=== PATIENT | female | born 1955 | race Caucasian/White ===

== ENCOUNTER 2021-04-29 16:26 | Inpatient (IN) | payer MEDICARE, SELFPAY ==
--- NOTE | ~2021-04-29 | CT_ITS ---
EXAMINATION: CT HEAD WITHOUT CONTRAST CLINICAL INFORMATION: Altered mental status. Syncope. Rule out intracranial bleed, stroke. COMPARISON: None TECHNIQUE: Contiguous axial imaging was performed from the skull base to vertex without intravenous administration of contrast. This CT examination was performed using dose optimization techniques as appropriate, variously including the following: *Automated exposure control *Adjustment of mA and/or kV according to patient size (this includes techniques or standardized protocols for targeted exams where dose is matched to indication/reason for exam; i.e. extremities or head) *Use of iterative reconstruction technique DLP: 683 mGy-cm FINDINGS: There is no evidence of acute intracranial hemorrhage or territorial infarction. No abnormal mass effect or midline shift is seen. Martin to white matter differentiation is well preserved. No extra-axial fluid collections are identified. The ventricles and sulci are age-appropriate. No significant abnormal parenchymal attenuation is appreciated on the head CT. The osseous structures and soft tissues are normal. The mastoid air cells and visualized portions of the paranasal sinuses are well aerated. CT/CT head/brain wo con IMPRESSION: No acute intracranial pathology. Specifically, there is no evidence of acute intracranial hemorrhage or acute territorial infarction. This critical result was discussed with Dr. Mccloud at 8:43 AM on 04/30/2021 and it was ascertained that the content and urgency of the report was understood at the time of direct communication.
--- NOTE | ~2021-04-29 | XR_ITS ---
EXAMINATION: XR CHEST CLINICAL INFORMATION: Chest COMPARISON: None TECHNIQUE: Frontal view of the chest was obtained. FINDINGS: Lungs are clear. There is no evidence of pleural effusion or consolidation. Cardiomediastinal silhouette. Status post median sternotomy XR/XR chest 1V IMPRESSION: No active cardiopulmonary disease.
--- NOTE | 2021-04-29 16:34 | ECG_ITS ---
Test Reason : CP Blood Pressure : / mmHG Vent. Rate : 052 BPM Atrial Rate : 052 BPM P-R Int : 158 ms QRS Dur : 070 ms QT Int : 514 ms P-R-T Axes : 055 043 058 degrees QTc Int : 478 ms Sinus bradycardia cannot exclude old anterior infarct Abnormal ECG No previous ECGs available Referred By: Generic ED Physician Electronically Signed By:LONG STEVEN
[2021-04-29 16:39] VITALS: BP 155/75; PULSE 54; RESP 22; TEMP 36.1; O2SAT 99; BMI 47.2
[2021-04-30] VITALS (13 sets, daily range): BP systolic 129–222; BP diastolic 59–101; PULSE 50–91; RESP 15–20; TEMP 36.3–36.9; O2SAT 96–100
[2021-04-30 01:14] LABS: MANUAL DIFF FLAG NO
[2021-04-30 01:22] LABS: Basophils Percent Auto 0.7 % (0-2); Eosinophils Absolute Auto 0.1 X10*3/uL (0.0-0.4); Eosinophils Percent Auto 2.5 % (0-4); Hematocrit 43.2 % (37.0-47.0); Hemoglobin 13.6 g/dl (12.0-16.0); Imm Gran Abs Auto 0.01 X10*3/uL (0.00-0.03); Imm Gran Pct Auto 0.2 % (0.0-0.4); Lymphocytes Absolute Auto 1.1 X10*3/uL (1.2-4.9); Lymphocytes Percent Auto 25.5 % (20-40); Mean Corpuscular HGB Conc 31.5 g/dl (31.0-35.0); Mean Corpuscular Hemoglobin 29.2 pg (27.0-33.0); Mean Corpuscular Volume 92.7 fL (80.0-98.0); Mean Platelet Volume 9.7 fL (9.4-12.3); Monocytes Absolute Auto 0.5 X10*3/uL (0.1-1.2); Monocytes Percent Auto 10.4 % (2-11); Neutrophils Absolute Auto 2.7 x10*3/uL (2.0-8.3); Neutrophils Percent Auto 60.7 % (45-73); Platelet Count 320 X10*3/uL (160-400); Red Blood Count 4.66 X10*6/uL (4.20-5.50); Red Cell Distribution Width 14.5 % (11.0-16.0); White Blood Count 4.4 X10*3/uL (4.8-10.8)
[2021-04-30 01:32] LABS: Anion Gap 11 (12-20); Blood Urea Nitrogen 12 mg/dL (9-16); Calcium 9.8 mg/dL (8.4-10.2); Carbon Dioxide 30 mmol/L (22-29); Chloride 107 mmol/L (96-108); Creatinine Clr Calc Pharmacy 71.7; Estimated Glomerular Filt Rate > 60; Glucose Random 133 mg/dL (60-115); Potassium 3.6 mmol/L (3.3-5.1); Sodium 144 mmol/L (135-145)
[2021-04-30 01:38] LABS: Troponin-I High Sensitivity 10.8 ng/L (<3.5-17.0)
[2021-04-30 01:46] LABS: COVID-19 Test Negative (Negative); IDNOW Serial# 55D5AD1C
--- NOTE | 2021-04-30 03:51 | PC.NURSE ---
Dr Rincon aware of BP
--- NOTE | 2021-04-30 05:22 | PC.NURSE ---
This RN and Dr Rincon at bedside for provider initial eval.
--- NOTE | 2021-04-30 05:37 | PC.NURSE ---
Pt aaox1, disoriented to place, situation and time. Dr Rincon aware, plan to speak with daughter and likely DC.
--- NOTE | 2021-04-30 06:10 | ED_ITS ---
HPI - Syncope General Chief Complaint: Syncope Stated Complaint: Chest wall pain/syncope Time Seen by Provider: 04/30/21 04:56 Source: family (Patient's daughter) Mode of arrival: EMS Limitations: language barrier (Vietnamese speaking only, memory deficits) History of Present Illness HPI narrative: 65-year-old female who was brought to emergency department by ambulance for evaluation of a syncopal episode. The patient has memory deficits according to her daughter. Information was obtained from the patient's daugh Jennifer weeks. According to her daughter, the patient had a heart attack 01/2021 and was treated at [facility]. The patient had a 3 vessel CABG. After the bypass, the patient had difficulty with elevated blood pressures. The daughter states that they had trouble getting blood pressure medications therefore they changed providers and or being seen at [facility]. The patient was started on metoprolol 25 mg twice a day. The daughter states the patient still had elevated blood pressures and they had a follow-up appointment yesterday with her provider at [facility]. The patient had a low heart rate but an elevated blood pressure. The plan was to start l osartan. The patient walked out of the doctor's office and suddenly felt unwell. According to the daughter, the patient stated she was not feeling well, she then stated that she was unable to see and then passed out. The daughter states that she passed out for 3-4 seconds woke up and then passed out 2 more times. An ambulance was called and the patient was brought to the emergency department for evaluation. The daughter states that this is the patient's 1st syncopal episode. The patient takes the following medications: Metoprolol 25 mg twice a day Aspirin 81 mg once a day Sertraline 100 mg daily Oxybutynin 10 mg once a day Gabapentin 100 mg 3 times a day Plavix 75 mg once a day Pantoprazole 40 mg once a day Atorvastatin 80 mg at bedtime Related Data Allergies Allergy/AdvReac Type Severity Reaction Status Date / Time No Known Allergies Allergy Verified 04/30/21 06:20 Review of Systems Review of Systems: Yes Unobtainable due to mental status PMFSH Social History Social History Advance Directives: No Physical Exam Vital Signs: Vital Signs: Last Vital Signs Temp 97.0 F 04/29/21 16:39 Pulse 54 04/30/21 05:29 Resp 16 04/30/21 05:29 BP 222/92 H 04/30/21 05:29 Pulse Ox 100 04/30/21 05:29 BMI result Body Mass Index 47.2 Const: Other: Very pleasant and cooperative female patient, awake and alert, oriented to person and place, does not have any insight as to why she is here in the emergency department cannot recount details of her syncopal episodes. HENMT: Head: Yes normal to inspection, Yes normocephalic and Yes atraumatic Ears: external ears normal General nose exam: Normal external nose present Face and sinus: Yes normal facial exam Mouth: Normal oral and palatal mucosa present Throat: Yes posterior oropharynx normal Eyes: General: appearance normal, both eyes and all related structures Pupils: Equal, round and reactive pupils present Neck: Neck: Yes normal visual inspection, Yes no lymphadenopathy, Yes trachea midline and Yes supple Chest: Chest palpation & inspection: normal inspection of the chest and normal palpation of entire chest wall Resp: Effort & Inspection: normal respiratory effort and able to speak in complete sentences Auscultation: clear to auscultation bilaterally Cardio: Rate: bradycardic Rhythm: regular rhythm Heart sounds: S1 normal heart sound present, S2 normal heart sound present and no murmurs GI: Inspection: Yes normal to inspection Palpation (GI): Soft to palpation, nontender and no guarding Auscultation: normal bowel sounds : General: Yes no CVA tenderness Back/Spine/Pelvis: Back: no CVA tenderness Skin: General skin exam: no rashes or lesions noted Neuro: Cranial nerves: Yes CN's II-XII intact bilaterally and Yes Equal, round and reactive pupils present Cognition (Neuro): normal cognition Motor exam (neuro): 5/5 motor strength present throughout Extrem: General: Yes normal to inspection Psych: Appearance: grossly normal Speech and movement: Normal speech and movement present Affect: normal affect Attitude: cooperative Course Course Course Narrative: 65-year-old female who had a syncopal episode after she had a doctor's appointment and [facility]. The patient had a myocardial infarction 02/02/2021 with a 3 vessel CABG. Patient has had elevated blood pressures and was being treated with metoprolol 25 mg twice a day. According to her daughter at her providers appointment today she had an elevated blood pressure with a low heart rate. After walking on of the office she had a syncopal episode which was preceded by a not feeling well and loss of vision. The patient was then transported to the emergency department for evaluation. At the time of my evaluation, the patient was awake and alert and had no complaints but lacks insight as to why she is here. Vital signs did reveal bradycardia with a pulse in the 50s, elevated blood pressures 220/92. Exam was otherwise unremarkable. Twelve EKG revealed poor R-wave progression with no ST segment elevation or depression. Laboratory evaluation was unremarkable with a troponin of 10.8. Repeat troponin is pending. Given her syncopal episode in her bradycardia, I believe that the patient should be hospitalized for cardiac monitoring and I will discuss the patient's presentation with the covering hospitalist. 0733: I discuss the patient's presentation with the covering hospitalist, Dr. Trinh. He did accept the patient. He requested that the patient get orthostatic vital signs and CT scan of the brain. The patient's hypertension will be treated with Procardia FX L 60 mg orally. MDM - Syncope Lab Data Result diagrams: 04/30/21 00:57 04/30/21 00:57 Labs: Lab Results 04/30/21 04/30/21 04/30/21 Range/Units 00:57 00:57 00:57 WBC 4.4 L (4.8-10.8) X10*3/uL RBC 4.66 (4.20-5.50) X10*6/uL Hgb 13.6 (12.0-16.0) g/dl Hct 43.2 (37.0-47.0) % MCV 92.7 (80.0-98.0) fL MCH 29.2 (27.0-33.0) pg MCHC 31.5 (31.0-35.0) g/dl RDW 14.5 (11.0-16.0) % Plt Count 320 (160-400) X10*3/uL MPV 9.7 (9.4-12.3) fL Immature Gran % (Auto) 0.2 (0.0-0.4) % Neut % (Auto) 60.7 (45-73) % Lymph % (Auto) 25.5 (20-40) % [place] % (Auto) 10.4 (2-11) % Eos % (Auto) 2.5 (0-4) % Baso % (Auto) 0.7 (0-2) % Lymph # (Auto) 1.1 L (1.2-4.9) X10*3/uL [place] # (Auto) 0.5 (0.1-1.2) X10*3/uL Eos # (Auto) 0.1 (0.0-0.4) X10*3/uL Baso # (Auto) 0.0 (0.0-0.2) X10*3/uL Abs Immat Gran (auto) 0.01 (0.00-0.03) X10*3/uL Absolute Neuts (auto) 2.7 (2.0-8.3) x10*3/uL Absolute Nucleated RBC 0.000 (0.0-0.012) X10*3/uL Nucleated RBC % (auto) 0.0 (0.0-0.2) /100WBC Sodium 144 (135-145) mmol/L Potassium 3.6 (3.3-5.1) mmol/L Chloride 107 (96-108) mmol/L Carbon Dioxide 30 H (22-29) mmol/L Anion Gap 11 L (12-20) BUN 12 (9-16) mg/dL Creatinine 0.89 (0.5-1.4) mg/dL Estim Creat Clear Calc 71.7 Estimated GFR > 60 Random Glucose 133 H (60-115) mg/dL Calcium 9.8 (8.4-10.2) mg/dL Troponin I High Sens 10.8 (<3.5-17.0) ng/L Urine Color Urine Appearance Urine pH (5.0-8.0) Ur Specific [place] (1.005-1.025) Urine Protein (NEG-TRACE) MG/DL Urine Glucose (UA) (NEG) MG/DL Urine Ketones (NEG) MG/DL Urine Blood (NEG) Urine Nitrite (NEG) Ur Leukocyte Esterase (NEG) COVID-19 ([facility]) (Negative) COVID-19 Clin Com 04/30/21 04/30/21 04/30/21 Range/Units 00:57 06:20 06:56 WBC (4.8-10.8) X10*3/uL RBC (4.20-5.50) X10*6/uL Hgb (12.0-16.0) g/dl Hct (37.0-47.0) % MCV (80.0-98.0) fL MCH (27.0-33.0) pg MCHC (31.0-35.0) g/dl RDW (11.0-16.0) % Plt Count (160-400) X10*3/uL MPV (9.4-12.3) fL Immature Gran % (Auto) (0.0-0.4) % Neut % (Auto) (45-73) % Lymph % (Auto) (20-40) % [place] % (Auto) (2-11) % Eos % (Auto) (0-4) % Baso % (Auto) (0-2) % Lymph # (Auto) (1.2-4.9) X10*3/uL [place] # (Auto) (0.1-1.2) X10*3/uL Eos # (Auto) (0.0-0.4) X10*3/uL Baso # (Auto) (0.0-0.2) X10*3/uL Abs Immat Gran (auto) (0.00-0.03) X10*3/uL Absolute Neuts (auto) (2.0-8.3) x10*3/uL Absolute Nucleated RBC (0.0-0.012) X10*3/uL Nucleated RBC % (auto) (0.0-0.2) /100WBC Sodium (135-145) mmol/L Potassium (3.3-5.1) mmol/L Chloride (96-108) mmol/L Carbon Dioxide (22-29) mmol/L Anion Gap (12-20) BUN (9-16) mg/dL Creatinine (0.5-1.4) mg/dL Estim Creat Clear Calc Estimated GFR Random Glucose (60-115) mg/dL Calcium (8.4-10.2) mg/dL Troponin I High Sens 11.3 (<3.5-17.0) ng/L Urine Color YELLOW Urine Appearance CLEAR Urine pH 6.5 (5.0-8.0) Ur Specific [place] 1.015 (1.005-1.025) Urine Protein NEG (NEG-TRACE) MG/DL Urine Glucose (UA) NEG (NEG) MG/DL Urine Ketones NEG (NEG) MG/DL Urine Blood NEG (NEG) Urine Nitrite NEG (NEG) Ur Leukocyte Esterase NEG (NEG) COVID-19 ([facility]) Negative (Negative) COVID-19 Clin Com See Note Discharge Plan Discharge Patient Disposition: Admitted As Inpatient
[2021-04-30 06:26] LABS: Appearance Urine CLEAR; Color Urine YELLOW; Glucose Urine UA NEG (NEG); Leukocyte Esterase Urine NEG (NEG); Nitrite Urine NEG (NEG); PH 6.5 (5.0-8.0); Specific Gravity - Urine 1.015 (1.005-1.025); Urine Blood NEG (NEG); Urine Ketones NEG (NEG); Urine Protein NEG (NEG-TRACE)
[2021-04-30 07:22] LABS: Troponin-I High Sensitivity 11.3 ng/L (<3.5-17.0)
--- NOTE | 2021-04-30 07:57 | PHA.MEDREC ---
Pharmacy Consult ? Medication Reconciliation Pharmacy has completed the medication reconciliation. Provider was able to get a medication list from the patients daughter. Checked CHIEF INFORMATION SECURITY OFFICER to verify the Gabapentin dosing.
[2021-04-30] MEDS: NIFEdipine ER 60 MG TAB.ER.24 PO (08:45)
[2021-04-30] MEDS: Sertraline HCL 100 MG TABLET PO (09:36)
[2021-04-30] MEDS: Heparin Sodium,Porcine 5,000 UNIT/ML VIAL 5000 UNIT SUBCUT ×2 (09:36→17:25)
[2021-04-30] MEDS: Aspirin Enteric Coated 81 MG TABLET.DR PO (09:37)
[2021-04-30] MEDS: Gabapentin 100 MG CAPSULE PO ×3 (09:37→21:47)
[2021-04-30] MEDS: Clopidogrel Bisulfate 75 MG TABLET PO (09:37)
--- NOTE | 2021-04-30 10:22 | PC.NURSE ---
pt alert, pleasantly confused. vss, pt denies pain, meds given as documented. awaiting bed assignment.
--- NOTE | 2021-04-30 11:43 | PM.CNCAR ---
History of Present Illness History of Present Illness Date of Service: 04/30/21 Chief complaint: HTN URGENCY SYNCOPE Narrative: This is a cardiology consultation regarding syncopal episode. Patient has a history of coronary disease as well as coronary artery bypass surgery last year. However patient is not able to really give any information at all. Based on the admission documentation, it seems that she was at her providers appointment and was thought to have elevated blood pressure and low heart rate and after walking into the office, had a syncopal episode. This was preceded by sensation not feeling well and last admission. Then she was transferred to the ED for further evaluation. Initial blood pressure was 220/92 mm Hg. Pulse was in the 50s apparently. Currently, she states that she feels good and she does not have any cardiac symptoms like chest pain or shortness of breath or in fact anything at all. Review of Systems Review of Systems: Yes all other systems are reviewed and are negative Cardiovascular: Cardiovascular: Reports as per HPI, Reports no additional cardiovascular complaints, Denies acrocyanosis, Denies cool extremities, Denies painful fingertips, Denies chest pain, Denies chest pain at rest, Denies diaphoresis, Denies syncope, Denies irregular heart rhythm, Denies claudication, Denies leg edema, Denies lightheadedness, Denies palpitations and Denies dyspnea Respiratory: Respiratory: Denies dyspnea Neurologic: Denies syncope Endocrine: Endocrine: Denies palpitations [facility] Family History Pertinent family history: Patient unable to provide. Social History Social History (Updated 04/30/21 @ 11:46 by Chevy Vernon MD) Patient Tobacco Use Status: Tobacco use Unknown Advance Directives: No Meds Allergies Allergy/AdvReac Type Severity Reaction Status Date / Time No Known Allergies Allergy Verified 04/30/21 06:20 Active Medications: Current Medications Aspirin (Aspirin Enteric Coated 81 Mg Tablet.) 81 mg PO DAILY [facility] Last Admin: 04/30/21 09:37 Dose: 81 mg Documented by: Atorvastatin Calcium (Atorvastatin Calcium 80 Mg Tablet) 80 mg PO BEDTIME [facility] Clopidogrel Bisulfate (Clopidogrel Bisulfate 75 Mg Tablet) 75 mg PO DAILY [facility] Last Admin: 04/30/21 09:37 Dose: 75 mg Documented by: Gabapentin (Gabapentin 100 Mg Capsule) 100 mg PO TID [facility] Last Admin: 04/30/21 09:37 Dose: 100 mg Documented by: Heparin Sodium (Porcine) (Heparin Sodium,Porcine 5,000 Unit/Ml Vial) 5,000 unit SUBCUT Q8H [facility] Last Admin: 04/30/21 09:36 Dose: 5,000 unit Documented by: Omeprazole (Omeprazole 20 Mg Capsule.Dr) 20 mg PO DAILY [facility] Oxybutynin Chloride (Oxybutynin Chloride Er 5 Mg Tab.Er.24) 10 mg PO DAILY [facility] Last Admin: 04/30/21 09:36 Dose: 10 mg Documented by: Pharmacy Consult (Consult Rx Perform Med Rec) 1 each MISCELLANE ONCE PRN PRN Reason: Consult order Sertraline HCl (Sertraline Hcl 100 Mg Tablet) 100 mg PO DAILY [facility] Last Admin: 04/30/21 09:36 Dose: 100 mg Documented by: Sodium Chloride (0.9 % Sodium Chloride Flush 3 Ml Syringe) 3 ml IVFLUSH QSTNFT [facility] Sodium Chloride (0.9 % Sodium Chloride Flush 3 Ml Syringe) 3 ml IVFLUSH QSTNFT [facility] Home Medications Medication Instructions Recorded Confirmed Last Taken Type aspirin 81 mg tablet,delayed 81 mg PO DAILY 04/30/21 04/30/21 Unknown History release atorvastatin 80 mg tablet 80 mg PO BEDTIME 04/30/21 04/30/21 Unknown History clopidogrel 75 mg tablet 1 tab PO DAILY 04/30/21 04/30/21 Unknown History gabapentin 100 mg capsule 100 mg PO TID 04/30/21 04/30/21 Unknown History metoprolol tartrate 25 mg tablet 1 tab PO BID 04/30/21 04/30/21 Unknown History oxybutynin chloride 10 mg 10 mg PO DAILY 04/30/21 04/30/21 Unknown History tablet,extended release 24 hr pantoprazole 40 mg tablet,delayed 40 mg PO DAILY 04/30/21 04/30/21 Unknown History release sertraline 100 mg tablet 100 mg PO DAILY 04/30/21 04/30/21 Unknown History Physical Exam Vital Signs: Vital Signs: Last Vital Signs Temp 98.4 F 04/30/21 10:43 Pulse 58 04/30/21 10:43 Resp 15 04/30/21 10:43 BP 167/75 H 04/30/21 10:43 Pulse Ox 99 04/30/21 08:54 BMI result Body Mass Index 47.2 Const: General: no acute distress HENMT: Other: Unremarkable Neck: Neck: Yes normal visual inspection Chest: Chest palpation & inspection: normal inspection of the chest Resp: Auscultation: no crackles and no wheezes Cardio: Palpation: normal PMI Heart sounds: S1 normal heart sound present, S2 normal heart sound present, no gallops, Murmur heart sound present (3/6 GEGE aortic area) and no rubs GI: Palpation (GI): Soft to palpation Back/Spine/Pelvis: Other: unremarkable Skin: Lesions: other Neuro: Cranial nerves: Yes Other cranial nerve findings present Extrem: General: Yes other Psych: Mental Status: other Objective Labs and Meds Result diagrams: 04/30/21 00:57 04/30/21 00:57 Lab results: Laboratory Results - last 24 hr 04/30/21 04/30/21 04/30/21 00:57 00:57 00:57 WBC 4.4 L RBC 4.66 Hgb 13.6 Hct 43.2 MCV 92.7 MCH 29.2 MCHC 31.5 RDW 14.5 Plt Count 320 MPV 9.7 Immature Gran % (Auto) 0.2 Neut % (Auto) 60.7 Lymph % (Auto) 25.5 [place] % (Auto) 10.4 Eos % (Auto) 2.5 Baso % (Auto) 0.7 Lymph # (Auto) 1.1 L [place] # (Auto) 0.5 Eos # (Auto) 0.1 Baso # (Auto) 0.0 Abs Immat Gran (auto) 0.01 Absolute Neuts (auto) 2.7 Absolute Nucleated RBC 0.000 Nucleated RBC % (auto) 0.0 Sodium 144 Potassium 3.6 Chloride 107 Carbon Dioxide 30 H Anion Gap 11 L BUN 12 Creatinine 0.89 Estim Creat Clear Calc 71.7 Estimated GFR > 60 Random Glucose 133 H Calcium 9.8 Troponin I High Sens 10.8 Urine Color Urine Appearance Urine pH Ur Specific [place] Urine Protein Urine Glucose (UA) Urine Ketones Urine Blood Urine Nitrite Ur Leukocyte Esterase COVID-19 ([facility]) COVID-19 Clin Com 04/30/21 04/30/21 04/30/21 00:57 06:20 06:56 WBC RBC Hgb Hct MCV MCH MCHC RDW Plt Count MPV Immature Gran % (Auto) Neut % (Auto) Lymph % (Auto) [place] % (Auto) Eos % (Auto) Baso % (Auto) Lymph # (Auto) [place] # (Auto) Eos # (Auto) Baso # (Auto) Abs Immat Gran (auto) Absolute Neuts (auto) Absolute Nucleated RBC Nucleated RBC % (auto) Sodium Potassium Chloride Carbon Dioxide Anion Gap BUN Creatinine Estim Creat Clear Calc Estimated GFR Random Glucose Calcium Troponin I High Sens 11.3 Urine Color YELLOW Urine Appearance CLEAR Urine pH 6.5 Ur Specific [place] 1.015 Urine Protein NEG Urine Glucose (UA) NEG Urine Ketones NEG Urine Blood NEG Urine Nitrite NEG Ur Leukocyte Esterase NEG COVID-19 ([facility]) Negative COVID-19 Clin Com See Note ECG Interpretation: EKG with sinus bradycardia, 52/Min; cannot exclude old anterior infarct due to low voltage complexes; non-specific ST-T changes. Imaging Radiologist's impression: Impressions Chest X-Ray 04/29/21 21:52 IMPRESSION: No active cardiopulmonary disease. Head CT 04/30/21 07:56 IMPRESSION: No acute intracranial pathology. Specifically, there is no evidence of acute intracranial hemorrhage or acute territorial infarction. This critical result was discussed with Dr. Mccloud at 8:43 AM on 04/30/2021 and it was ascertained that the content and urgency of the report was understood at the time of direct communication. Assessment and Plan (1) Syncope and collapse: Status: Acute (2) Bradycardia: Status: Acute (3) Hypertensive emergency: Status: Acute Unclear cause or syncope. Bradycardia itself is unlikely to cause this. Possibly from uncontrolled hypertension. Based on home medication reconciliation, she is on metoprolol tartrate 25 mg b.i.d. only for blood pressure. Can start amlodipine 10 mg daily. It seems she got Procardia after arrival. Otherwise she is on dual antiplatelet therapy as well as high-dose statins. On examination, she has a murmur of aortic stenosis and that might have played a role if the blood pressure is also concurrently high. For that reason will need an echocardiogram, if nothing recent. We will follow up with you tomorrow. Procedures Date of Service Date of Service: 04/30/21
[2021-04-30] MEDS: 0.9 % Sodium Chloride Flush 3 ML SYRINGE IVFLUSH (16:51)
--- NOTE | 2021-04-30 17:40 | PM.IMHP ---
History of Present Illness Date of Service: 04/30/21 Chief Complaint: htn , syncope 65-year-old female who came to the hospital after syncopal episode, she seems like have some cognitive impairment versus early dementia -could not able to provide much history. History was taken from emergency room physician and patient: as per the patient patient was her at her appointment where she was going out after the appointment and had the as passed out x2 as per the patient. , she denies any chest pain or shortness of breath or palpitation before the episode. She said the episode was very brief. As per ED physician patient has history of CAD status post CABG- and was seeing her PCP for her blood pressure management- she was on metoprolol and was planned to add losartan. And subsequently was when going home she passed out. she had mild bradycardia and blood pressure was in 200 range when she came to the hospital. Denies any new complaint of chest pain or shortness of breath or abdominal pain or fever or chills or nausea or vomiting Denies any cough Denies any weakness or numbness. Review of Systems Review of Systems: as above. Yes all other systems are reviewed and are negative PMFSH Pertinent family history: Patient does not know much family history, but denies any family history of dementia. Social History Patient Tobacco Use Status: Tobacco use Unknown Advance Directives: No Meds Allergies Allergy/AdvReac Type Severity Reaction Status Date / Time No Known Allergies Allergy Verified 04/30/21 06:20 Active Medications: Current Medications Aspirin (Aspirin Enteric Coated 81 Mg Tablet.) 81 mg PO DAILY [facility] Last Admin: 04/30/21 09:37 Dose: 81 mg Documented by: Atorvastatin Calcium (Atorvastatin Calcium 80 Mg Tablet) 80 mg PO BEDTIME [facility] Clopidogrel Bisulfate (Clopidogrel Bisulfate 75 Mg Tablet) 75 mg PO DAILY [facility] Last Admin: 04/30/21 09:37 Dose: 75 mg Documented by: Gabapentin (Gabapentin 100 Mg Capsule) 100 mg PO TID [facility] Last Admin: 04/30/21 15:50 Dose: 100 mg Documented by: Heparin Sodium (Porcine) (Heparin Sodium,Porcine 5,000 Unit/Ml Vial) 5,000 unit SUBCUT Q8H [facility] Last Admin: 04/30/21 17:25 Dose: 5,000 unit Documented by: Omeprazole (Omeprazole 20 Mg Capsule.) 20 mg PO DAILY [facility] Oxybutynin Chloride (Oxybutynin Chloride Er 5 Mg Tab.Er.24) 10 mg PO DAILY [facility] Last Admin: 04/30/21 09:36 Dose: 10 mg Documented by: Pharmacy Consult (Consult Rx Perform Med Rec) 1 each MISCELLANE ONCE PRN PRN Reason: Consult order Sertraline HCl (Sertraline Hcl 100 Mg Tablet) 100 mg PO DAILY [facility] Last Admin: 04/30/21 09:36 Dose: 100 mg Documented by: Sodium Chloride (0.9 % Sodium Chloride Flush 3 Ml Syringe) [facility] Last Admin: 04/30/21 16:51 Dose: 3 ml Documented by: Sodium Chloride (0.9 % Sodium Chloride Flush 3 Ml Syringe) 3 ml IVFLUSH [facility] Last Admin: 04/30/21 17:28 Dose: Not Given Documented by: Home Medications Medication Instructions Recorded Confirmed Last Taken Type aspirin 81 mg tablet,delayed 81 mg PO DAILY 04/30/21 04/30/21 Unknown History release atorvastatin 80 mg tablet 80 mg PO BEDTIME 04/30/21 04/30/21 Unknown History clopidogrel 75 mg tablet 1 tab PO DAILY 04/30/21 04/30/21 Unknown History gabapentin 100 mg capsule 100 mg PO TID 04/30/21 04/30/21 Unknown History metoprolol tartrate 25 mg tablet 1 tab PO BID 04/30/21 04/30/21 Unknown History oxybutynin chloride 10 mg 10 mg PO DAILY 04/30/21 04/30/21 Unknown History tablet,extended release 24 hr pantoprazole 40 mg tablet,delayed 40 mg PO DAILY 04/30/21 04/30/21 Unknown History release sertraline 100 mg tablet 100 mg PO DAILY 04/30/21 04/30/21 Unknown History Physical Exam Vital Signs and Narrative: Vital Signs: Last Vital Signs Temp 97.8 F 04/30/21 15:39 Pulse 64 04/30/21 16:29 Resp 16 04/30/21 15:39 BP 164/67 H 04/30/21 16:29 Pulse Ox 97 04/30/21 16:29 BMI result Body Mass Index 47.2 Physical exam: Appearance: Alert.? Oriented X2.? not in distress.? Eyes: Pupils equal, round and reactive to light.? Sclera nonicteric.? ENT: Pharynx normal.? Moist mucous membranes. cvs: rr(keisha).,, [id number] res: clear to auscultation ,no rhonchii or wheezing abd: no rebound or guarding ,nt, bs present. ext pulses present , no cyanosis ,Gait well balanced well coordinated. neuro: axo2 , nonfocal. Results Labs CBC and Chem 7: 04/30/21 00:57 04/30/21 00:57 Labs: Laboratory Results - last 24 hr 04/30/21 04/30/21 04/30/21 00:57 00:57 00:57 MCV 92.7 MCH 29.2 MCHC 31.5 RDW 14.5 Plt Count 320 MPV 9.7 Immature Gran % (Auto) 0.2 Neut % (Auto) 60.7 Lymph % (Auto) 25.5 [place] % (Auto) 10.4 Eos % (Auto) 2.5 Baso % (Auto) 0.7 Lymph # (Auto) 1.1 L [place] # (Auto) 0.5 Eos # (Auto) 0.1 Baso # (Auto) 0.0 Abs Immat Gran (auto) 0.01 Absolute Neuts (auto) 2.7 Absolute Nucleated RBC 0.000 Nucleated RBC % (auto) 0.0 Anion Gap 11 L Estim Creat Clear Calc 71.7 Estimated GFR > 60 Random Glucose 133 H Calcium 9.8 Troponin I High Sens 10.8 Urine Color Urine Appearance Urine pH Ur Specific [place] Urine Protein Urine Glucose (UA) Urine Ketones Urine Blood Urine Nitrite Ur Leukocyte Esterase COVID-19 ([facility]) COVID-19 Clin Com 04/30/21 04/30/21 04/30/21 00:57 06:20 06:56 MCV MCH MCHC RDW Plt Count MPV Immature Gran % (Auto) Neut % (Auto) Lymph % (Auto) [place] % (Auto) Eos % (Auto) Baso % (Auto) Lymph # (Auto) [place] # (Auto) Eos # (Auto) Baso # (Auto) Abs Immat Gran (auto) Absolute Neuts (auto) Absolute Nucleated RBC Nucleated RBC % (auto) Anion Gap Estim Creat Clear Calc Estimated GFR Random Glucose Calcium Troponin I High Sens 11.3 Urine Color YELLOW Urine Appearance CLEAR Urine pH 6.5 Ur Specific [place] 1.015 Urine Protein NEG Urine Glucose (UA) NEG Urine Ketones NEG Urine Blood NEG Urine Nitrite NEG Ur Leukocyte Esterase NEG COVID-19 ([facility]) Negative COVID-19 Clin Com See Note ECG Attestation: I personally reviewed and interpreted this ECG as follows: ( Sinus bradycardia) Imaging Radiologist's Impressions: Impressions Chest X-Ray 04/29/21 21:52 IMPRESSION: No active cardiopulmonary disease. Head CT 04/30/21 07:56 IMPRESSION: No acute intracranial pathology. Specifically, there is no evidence of acute intracranial hemorrhage or acute territorial infarction. This critical result was discussed with Dr. Mccloud at 8:43 AM on 04/30/2021 and it was ascertained that the content and urgency of the report was understood at the time of direct communication. Assessment and Plan (1) Hypertensive emergency: Status: Acute (2) Syncope and collapse: Status: Acute 1. hypertension urgency and syncope: CT head negative Sinus bradycardia less likely to cause syncope tele monitoring hold metoprolol, will add amlodipine orthostasis-neg received per cardio this morning Cardio evaluation pending 2. CAD status post CABG: continue aspirin, statin, clopidogrel. dvt porphylax : s/c heparin Quality Stroke Does the patient have a stroke diagnosis?: No VTE Prior VTE?: No VTE Risk Level:: Medical - moderate - high VTE Device Contraindication: N/A - Device Ordered VTE Drug Contraindication: N/A - Med Ordered
--- NOTE | 2021-04-30 19:51 | PC.NURSE ---
PATIENT ATE 100 % OF DINNER ,PATIENT WATCHING TELEVISION AND IN [employer] .
[2021-04-30] MEDS: Atorvastatin Calcium 80 MG TABLET PO (21:47)
[2021-05-01] MEDS: 0.9 % Sodium Chloride Flush 3 ML SYRINGE IVFLUSH ×2 (00:46→00:47)
[2021-05-01] MEDS: Heparin Sodium,Porcine 5,000 UNIT/ML VIAL 5000 UNIT SUBCUT ×2 (02:26→08:17)
[2021-05-01 06:20] VITALS: PULSE 63; RESP 20; O2SAT 95
[2021-05-01] MEDS: Clopidogrel Bisulfate 75 MG TABLET PO (08:16)
[2021-05-01] MEDS: Sertraline HCL 100 MG TABLET PO (08:16)
[2021-05-01] MEDS: Gabapentin 100 MG CAPSULE PO (08:16)
[2021-05-01] MEDS: Aspirin Enteric Coated 81 MG TABLET.DR PO (08:16)
[2021-05-01] MEDS: Omeprazole 20 MG CAPSULE.DR PO (08:16)
[2021-05-01 08:18] VITALS: BP 135/71; PULSE 67; RESP 16; TEMP 37.1; O2SAT 96
--- NOTE | 2021-05-01 08:19 | HO.PM.IMPN ---
Subjective Subjective Date of Service: 05/01/21 Interval History: htn urgency, syncope Review of Systems Denies any new complaint of chest pain or shortness of breath or abdominal pain or fever or chills or nausea or vomiting or cough Denies any cough Denies any weakness or numbness Physical Exam Vital Signs: Vital Signs: Last Vital Signs Temp 98.7 F 05/01/21 08:18 Pulse 67 05/01/21 08:18 Resp 16 05/01/21 08:18 BP 135/71 05/01/21 08:18 Pulse Ox 96 05/01/21 08:18 BMI result Body Mass Index 47.2 Objective Data Active Medications Amlodipine Besylate (Amlodipine Besylate 5 Mg Tablet) 5 mg PO DAILY [facility]; Protocol Aspirin (Aspirin Enteric Coated 81 Mg Tablet.) 81 mg PO DAILY [facility] Last Admin: 05/01/21 08:16 Dose: 81 mg Documented by: SOFIA Atorvastatin Calcium (Atorvastatin Calcium 80 Mg Tablet) 80 mg PO BEDTIME [facility] Last Admin: 04/30/21 21:47 Dose: 80 mg Documented by: JEAN CARLOS Clopidogrel Bisulfate (Clopidogrel Bisulfate 75 Mg Tablet) 75 mg PO DAILY [facility] Last Admin: 05/01/21 08:16 Dose: 75 mg Documented by: SOFIA Gabapentin (Gabapentin 100 Mg Capsule) 100 mg PO TID [facility] Last Admin: 05/01/21 08:16 Dose: 100 mg Documented by: SOFIA Heparin Sodium (Porcine) (Heparin Sodium,Porcine 5,000 Unit/Ml Vial) 5,000 unit SUBCUT Q8H [facility] Last Admin: 05/01/21 08:17 Dose: 5,000 unit Documented by: SOFIA Omeprazole (Omeprazole 20 Mg Capsule.) 20 mg PO DAILY [facility] Last Admin: 05/01/21 08:16 Dose: 20 mg Documented by: SOFIA Oxybutynin Chloride (Oxybutynin Chloride Er 5 Mg Tab.Er.24) 10 mg PO DAILY [facility] Last Admin: 05/01/21 08:17 Dose: 10 mg Documented by: SOFIA Pharmacy Consult (Consult Rx Perform Med Rec) 1 each MISCELLANE ONCE PRN PRN Reason: Consult order Sertraline HCl (Sertraline Hcl 100 Mg Tablet) 100 mg PO DAILY [facility] Last Admin: 05/01/21 08:16 Dose: 100 mg Documented by: SOFIA Sodium Chloride (0.9 % Sodium Chloride Flush 3 Ml Syringe) 3 ml IVFLUSH [facility] Last Admin: 05/01/21 07:00 Dose: Not Given Documented by: SOFIA Non-Admin Reason: Med Not Available Sodium Chloride (0.9 % Sodium Chloride Flush 3 Ml Syringe) 3 ml IVFLUSH [facility] Last Admin: 05/01/21 07:00 Dose: Not Given Documented by: SOFIA Non-Admin Reason: Med Not Available Labs CBC & Chem 7: 04/30/21 00:57 04/30/21 00:57 Assessment and Plan Assessment and Plan: 1. hypertension urgency and syncope: ?CT head negative Sinus bradycardia less likely to cause syncope ?tele monitoring ?hold metoprolol, will add amlodipine ?orthostasis-neg ?received per cardio this morning ?Cardio evaluation pending 2. CAD status post CABG:? continue aspirin, statin, clopidogrel. ?dvt porphylax : s/c heparin Quality Stroke Does the patient have a stroke diagnosis?: No VTE Prior VTE?: No VTE Risk Level:: Medical - moderate - high VTE Device Contraindication: N/A - Device Ordered VTE Drug Contraindication: N/A - Med Ordered
[2021-05-01 08:24] LABS: Anion Gap 11 (12-20); Blood Urea Nitrogen 10 mg/dL (9-16); Calcium 9.8 mg/dL (8.4-10.2); Carbon Dioxide 28 mmol/L (22-29); Chloride 106 mmol/L (96-108); Creatinine Clr Calc Pharmacy 79.7; Estimated Glomerular Filt Rate > 60; Glucose Random 118 mg/dL (60-115); Potassium 3.9 mmol/L (3.3-5.1); Sodium 141 mmol/L (135-145)
--- NOTE | 2021-05-01 08:24 | PC.NURSE ---
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 Heart sounds normal and lungs clear. NSR noted. No dizziness of lightheadness noted. Pt abd round, soft and non-tender. Pt siting up and tolerating breakfast well.
[2021-05-01] MEDS: amLODIPine Besylate 5 MG TABLET PO (08:37)
--- NOTE | 2021-05-01 11:43 | PM.DS ---
DS: Providers Provider Date of Service: 05/01/21 Date of admission: 04/30/21 10:36 Primary care physician: Radha Pinedo MD Consults: 04/30/21 09:05 Consult to Cardiology Routine Consulting Provider: Chevy Vernon Reason for consultation: syncope/uncontrolled htn Has provider been notified: No DS: Diagnosis Discharge Diagnosis (1) Hypertensive emergency: Status: Acute (2) Syncope and collapse: Status: Acute DS: Summary Hospital Course Hospital Course: ?65-year-old female who came to the hospital after syncopal episode, she seems like have some cognitive impairment versus early dementia -could not able to provide much history.? History was taken from emergency room physician and patient:? as per the patient patient was her at her appointment where she was going out after the appointment and had the as passed out x2 as per the patient. , she denies any chest pain or shortness of breath or palpitation before the episode.? She said the episode was very brief. ? As per ED physician patient has history of CAD status post CABG- and was seeing her PCP for her blood pressure management- she was on metoprolol and was planned to add losartan.? And subsequently was when going home she passed out. ?she had mild bradycardia and blood pressure was in 200 range when she came to the hospital. ? Denies any new complaint of chest pain or shortness of breath or abdominal pain or fever or chills or nausea or vomiting Denies any cough Denies any weakness or numbness. Hospital course: patient came to the hospital because of possible syncope and hypertension urgency: Subsequently patient also given blood pressure medication amlodipine - seems Blood pressure improved, continue amlodipine at home. Syncope: seems multifactorial, patient says that was not eating well from couple of days, also need further cardiac workup out patiently. orthostatic negative. Patient is encouraged for adequate p.o. intake and hydration. further management outpatient as per Cardiology, cardio may arrange outpatient appointment. above management discussed with patient daughter in detail she understand and in agreement with the above plan. Time spent 50 minutes Time Spent with Patient Time attestation: Total time spent providing and/or coordinating discharge services: Discharge coordination time: Greater than 30 minutes Quality: Stroke Does the patient have a stroke diagnosis?: No Physical Exam Vital Signs: Vital Signs: Last Vital Signs Temp 98.7 F 05/01/21 08:18 Pulse 67 05/01/21 08:18 Resp 16 05/01/21 08:18 BP 135/71 05/01/21 08:18 Pulse Ox 96 05/01/21 08:18 BMI result Body Mass Index 47.2 Appearance: Alert.? Oriented X2.? not in distress. at baseline?as per her daughter. Eyes: Pupils equal, round and reactive to light.? Sclera nonicteric.? ENT: Pharynx normal.? Moist mucous membranes. cvs: rr(keisha), [id number] res: clear to auscultation ,no rhonchii or wheezing abd: no rebound or guarding ,nt, bs present. ext pulses present , no cyanosis ,Gait well balanced well coordinated. neuro: axo2 , nonfocal. DS: Data Data Completed and Pending Labs on day of discharge: Laboratory Results - last 24 hr 05/01/21 07:25 Sodium 141 Potassium 3.9 Chloride 106 Carbon Dioxide 28 Anion Gap 11 L BUN 10 Creatinine 0.80 Estim Creat Clear Calc 79.7 Estimated GFR > 60 Random Glucose 118 H Calcium 9.8 Additional Comments Additional comments: CT/CT head/brain wo con IMPRESSION: No acute intracranial pathology. Specifically, there is no evidence of acute intracranial hemorrhage or acute territorial infarction. XR/XR chest 1V IMPRESSION: No active cardiopulmonary disease. Discharge Plan Discharge Patient Disposition: Home, Self-Care Discharge Diagnosis: bradycardia, hypertension urgency. A Referrals: Radha Pinedo MD [Primary Care Provider] - 1 Week Discharge Medications: New amlodipine 5 mg tablet 5 mg PO DAILY Qty: 30 RF: 0 Continued atorvastatin 80 mg Tablet 80 mg PO BEDTIME RF: 0 oxybutynin chloride 10 mg Tablet Extended Release 24hr 10 mg PO DAILY RF: 0 sertraline 100 mg Tablet 100 mg PO DAILY RF: 0 clopidogrel 75 mg tablet 1 tab PO DAILY RF: 0 aspirin 81 mg Tablet,Delayed Release (Dr/Ec) 81 mg PO DAILY RF: 0 pantoprazole 40 mg Tablet,Delayed Release (Dr/Ec) 40 mg PO DAILY RF: 0 gabapentin 100 mg Capsule 100 mg PO TID RF: 0 Discontinued metoprolol tartrate 25 mg tablet 1 tab PO BID RF: 0 Discharge Orders: Discharge Order (Routine); Ordered 05/01/21 Ordered By: Eulogio Trinh Diet: advance to usual diet Activity on Discharge: As tolerated Stand Alone Forms: Patient Portal Discharge page Care Plan Goals: patient came to the hospital because of possible syncope and hypertension urgency: Subsequently patient also given blood pressure medication amlodipine - seems Blood pressure improved, continue amlodipine at home. Syncope: seems multifactorial, patient says that was not eating well from couple of days, also need further cardiac workup out patiently. orthostatic negative. Patient is encouraged for adequate p.o. intake and hydration. further management outpatient as per Cardiology, cardio may arrange outpatient appointment. above management discussed with patient daughter in detail she understand and in agreement with the above plan. Health Concerns: As above. Plan of Treatment: As above. Assessment: As above.
--- NOTE | 2021-05-01 11:50 | P.PNCA_ITS ---
Subjective Subjective Date of Service: 05/01/21 Interval history: Feels OK. No new complaints. Review of Systems Review of Systems Yes all other systems are reviewed and are negative Cardiovascular: Reports as per HPI, Reports no additional cardiovascular complaints, Denies acrocyanosis, Denies cool extremities, Denies painful fingertips, Denies chest pain, Denies chest pain at rest, Denies diaphoresis, Denies syncope, Denies irregular heart rhythm, Denies claudication, Denies leg edema, Denies lightheadedness, Denies palpitations and Denies dyspnea Respiratory: Denies dyspnea Denies syncope Endocrine: Denies palpitations Physical Exam Vital Signs: Last Vital Signs Temp 98.7 F 05/01/21 08:18 Pulse 67 05/01/21 08:18 Resp 16 05/01/21 08:18 BP 135/71 05/01/21 08:18 Pulse Ox 96 05/01/21 08:18 BMI result Body Mass Index 47.2 Const General: no acute distress HENMT Other: Unremarkable Neck Neck: Yes normal visual inspection Chest Chest palpation & inspection: normal inspection of the chest Resp Auscultation: no crackles and no wheezes Cardio Palpation: normal PMI Heart sounds: S1 normal heart sound present, S2 normal heart sound present, no gallops, Murmur heart sound present (3/6 GEGE aortic area) and no rubs GI Palpation (GI): Soft to palpation Back/Spine/Pelvis Other: unremarkable Skin Lesions: other Neuro Cranial nerves: Yes Other cranial nerve findings present Extrem General: Yes other Psych Mental Status: other Objective Labs and Meds Result diagrams: 04/30/21 00:57 05/01/21 07:25 Lab results: Laboratory Results - last 24 hr 05/01/21 07:25 Sodium 141 Potassium 3.9 Chloride 106 Carbon Dioxide 28 Anion Gap 11 L BUN 10 Creatinine 0.80 Estim Creat Clear Calc 79.7 Estimated GFR > 60 Random Glucose 118 H Calcium 9.8 Progress Note: A&P Assessment and plan (1) Syncope and collapse: Status: Acute (2) Bradycardia: Status: Acute (3) Hypertensive emergency: Status: Acute Assessment and Plan: Unclear cause or syncope. Bradycardia itself is unlikely to cause this. Possibly from uncontrolled hypertension. Based on home medication reconciliation, she is on metoprolol tartrate 25 mg b.i.d. only for blood pressure- not stopped. Started amlodipine. It seems she got Procardia after arrival. Otherwise she is on dual antiplatelet therapy as well as high-dose statins. On examination, she has a murmur of aortic stenosis and that might have played a role if the blood pressure is also concurrently high. Will get echocardiogram and outpt FU. Fall Risk Details Current Medications: Current Medications Amlodipine Besylate (Amlodipine Besylate 5 Mg Tablet) 5 mg PO DAILY [facility]; Protocol Last Admin: 05/01/21 08:37 Dose: 5 mg Documented by: Aspirin (Aspirin Enteric Coated 81 Mg Tablet.) 81 mg PO DAILY [facility] Last Admin: 05/01/21 08:16 Dose: 81 mg Documented by: Atorvastatin Calcium (Atorvastatin Calcium 80 Mg Tablet) 80 mg PO BEDTIME [facility] Last Admin: 04/30/21 21:47 Dose: 80 mg Documented by: Clopidogrel Bisulfate (Clopidogrel Bisulfate 75 Mg Tablet) 75 mg PO DAILY [facility] Last Admin: 05/01/21 08:16 Dose: 75 mg Documented by: Gabapentin (Gabapentin 100 Mg Capsule) 100 mg PO TID [facility] Last Admin: 05/01/21 08:16 Dose: 100 mg Documented by: Heparin Sodium (Porcine) (Heparin Sodium,Porcine 5,000 Unit/Ml Vial) 5,000 unit SUBCUT Q8H [facility] Last Admin: 05/01/21 08:17 Dose: 5,000 unit Documented by: Omeprazole (Omeprazole 20 Mg Capsule.) 20 mg PO DAILY [facility] Last Admin: 05/01/21 08:16 Dose: 20 mg Documented by: Oxybutynin Chloride (Oxybutynin Chloride Er 5 Mg Tab.Er.24) 10 mg PO DAILY [facility] Last Admin: 05/01/21 08:17 Dose: 10 mg Documented by: Pharmacy Consult (Consult Rx Perform Med Rec) 1 each MISCELLANE ONCE PRN PRN Reason: Consult order Sertraline HCl (Sertraline Hcl 100 Mg Tablet) 100 mg PO DAILY [facility] Last Admin: 05/01/21 08:16 Dose: 100 mg Documented by: Sodium Chloride (0.9 % Sodium Chloride Flush 3 Ml Syringe) [facility] Last Admin: 05/01/21 07:00 Dose: Not Given Documented by: Sodium Chloride (0.9 % Sodium Chloride Flush 3 Ml Syringe) [facility] Last Admin: 05/01/21 07:00 Dose: Not Given Documented by: Time Spent With Patient Time: Total time spent is greater than 50% in coordination of care (as documented) at patient's floor/unit and/or counseling patient: Time with patient: less than 15 minutes Progress Note: Quality Stroke Does the patient have a stroke diagnosis?: No Procedures Date of Service Date of Service: 05/01/21
--- NOTE | 2021-05-01 12:11 | PC.NURSE ---
Pt's daughter Francis: [phone]
--- NOTE | 2021-05-01 12:58 | PC.NURSE ---
Pt D/C from ER with instructins. [employer] used for assistance. Pt's daughter call and will give ride home. Pt states understanding to D/C paperwork.
--- NOTE | 2021-05-02 08:17 | P.CDIC_ITS ---
CDI Concurrent Query Documentation Clarification: PHYSICIAN'S DOCUMENTATION REQUEST Date of Query: 05/02/21 0817 Patient Name: Farhana Goodman Admit Date: 04/30/21 Dear Doctor, A review of the medical record indicates additional documentation may be needed. Please review below and update the documentation accordingly. Clinical Indicators: Height: [] 5'1 Weight: [] 113.398 kg BMI: [] 47.2 Other Clinical Notes Supporting Significance of the BMI: Risk Factors/Clinical Indicators/Treatments If possible, please provide an associated diagnosis related to the abnormal BMI, such as: For a BMI >= 40: * Overweight * Obesity * Due to excess calories * Drug induced * Due to other cause * Severe or Morbid Obesity * With alveolar hypoventilation * Without alveolar hypoventilation Or: * BMI is not significant * Other (please specify) * Unable to determine Use of terms such as suspected, likely, concern for, or probable (associated with a specific diagnosis that is being evaluated, monitored, or treated as if it exists) are acceptable and can be coded in the inpatient setting, when documented at the time of discharge. Thank you, Tamara Cerrato RN Extension: [phone] Please use your independent medical judgment in providing your response. THIS QUERY IS PART OF THE PERMANENT MEDICAL RECORD Provider Response: Other Other Diagnosis: morbid obesity
== END 2021-05-01 12:55 | disposition home or self-care (01) | DRG 305 ==
LOC: HO.ED 04-30 06:21 → HO.EDOVER 04-30 11:14
PROVIDERS: Admitting Provider Internal Medicine; Emergency Provider Emergency Medicine Emergency Medical Services; PCP Family Medicine; Visit Provider Internal Medicine
DX: I16.0 Hypertensive urgency (principal); Z68.42 Body mass index [BMI] 45.0-49.9, adult; R00.1 Bradycardia, unspecified; E66.01 Morbid (severe) obesity due to excess calories; R55 Syncope and collapse; F03.90 Unspecified dementia, unspecified severity, without behavioral disturbance, psychotic disturbance, mood disturbance, and anxiety; I25.10 Atherosclerotic heart disease of native coronary artery without angina pectoris; Z20.822 Contact with and (suspected) exposure to COVID-19; Z79.02 Long term (current) use of antithrombotics/antiplatelets; Z79.82 Long term (current) use of aspirin; Z79.899 Other long term (current) drug therapy
CPT/HCPCS: 36415; 70450; 71045; 80048; 81003; 84484; 85025; 87635; 93005; 97162; 99219; 99285

== ENCOUNTER → 2021-06-29 08:38 | Outpatient (REF) | payer MEDICARE, SELFPAY ==
--- NOTE | 2021-06-29 08:44 | CA_ITS ---
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 Study Quality: Fair ECG Rhythm: Sinus Conclusions: - The left ventricular systolic function is normal. The visually estimated ejection fraction is between 65-70%. - There is mild aortic valve stenosis. - There is moderate posterior mitral annular calcification. Findings Left Ventricle Normal left ventricular cavity size. There is normal left ventricular wall thickness. The left ventricular systolic function is normal. The visually estimated ejection fraction is between 65-70%. There is no evidence of regional wall motion abnormalities. Diastolic function is indeterminate on the basis of available data. Right Ventricle Normal right ventricular cavity size and systolic function. Atria The left atrium is mildly dilated. The right atrium is normal in size. Aortic Valve There is mild calcification of the aortic valve. There is mild aortic valve stenosis. The mean gradient is 12 mmHg. The aortic valve area is 1.65 cm2. There is no aortic valve regurgitation. Mitral Valve There is moderate posterior mitral annular calcification. There is no mitral valve regurgitation. There is no mitral valve stenosis. Pulmonic Valve The pulmonic valve was not well visualized. Tricuspid Valve Normal tricuspid valve structure. There is trace tricuspid valve regurgitation. There is no evidence of pulmonary hypertension. Great Vessels The aorta was not well visualized. The sinuses of valsalva is normal in size. Venous The inferior vena cava is normal in size and collapses greater than 50% with inspiration. Pericardium/Pleural There is no evidence of pericardial effusion. Prior Study Comparison No prior study available for comparison. Measurements 2D Linear Measurements IVSd: 1.21 0.6-0.9/0.6-1.0 cm LVIDd: 4.19 3.9-5.3/4.2-5.9 cm LVIDd Index: 2.16 2.4-3.2/2.2-3.1 cm/m2 LVIDs: 2.29 2.0-3.6 cm LVPWd: 1.22 0.7-1.1 cm Ao Root: 2.60 2.1-3.5 cm LA Diam: 4.40 2.7-3.8/3.0-4.0 cm LAIDs Index: 2.27 1.5-2.3 cm/m2 LV Mass: 225.22 67-162/88-224 g LV Mass Index: 116.09 43-95/49-115 g/m2 LVOT Diam: 2.10 3.0+(-)1.3 cm 2D Systolic Function EF 4C: 65.20 >55% EF 2C: 68.50 >55% EF BiP: 65.70 >55% Mitral Valve MV VTI: 0.39 MV Pk [place]: 1.08 MV Mn [place]: 0.51 MV Pk Grad: 5.00 MV Mn Grad: 1.00 MV Pk E: 0.82 MV PK A: 1.04 MV Decel Time: 313.00 E/A: 0.80 PHT: 92.00 MVA PHT: 2.39 MVA Continuity: 2.41 Decel [place]: 2.63 Aortic Valve AoV Pk [place]: 2.41 AoV Mn [place]: 1.58 AoV VTI: 0.57 AoV Pk Grad: 23.00 Aov Mn Grad: 12.00 ZUNILDA Cont.VTI: 1.65 LVOT LVOT Pk [place]: 1.15 LVOT Mn [place]: 0.81 LVOT VTI: 0.27 LVOT Pk Grad: 5.00 LVOT Mn Grad: 3.00 LVOT Diam: 2.10 LVOT Area: 3.46 Diastolic Function MV Pk E: 0.82 MV Pk A: 1.04 E/A: 0.80 Tricuspid Valve TR Pk [place]: 2.32 TR Pk Grad: 22.00 RA Press: 3.00 RVSP: 25.00 Great Vessels Aorta Ao Root-2D: 2.60 2.0-3.7 cm Sinus of Valsalva: 2.90 2.0-3.[address] [place]: 3.50 1.7-3.4 cm Pulmonary Valve PV Pk [place]: 1.23 Peak PV Grad: 6.00 Updated in Other Vendor System with Status of Final Chevy Vernon MD electronically signed on 07/01/2021 4:46:50 PM with status of Final
== END ==
LOC: HO.CARD 08:38
PROVIDERS: PCP Family Medicine; Visit Provider Internal Medicine
DX: I25.10 Atherosclerotic heart disease of native coronary artery without angina pectoris (principal); I35.0 Nonrheumatic aortic (valve) stenosis
CPT/HCPCS: 93306

== ENCOUNTER → 2021-07-06 12:26 | Outpatient (BNVA) | payer MEDICARE, SELFPAY | PROVIDERS: PCP Family Medicine; Referring Provider Family Medicine; Visit Provider Internal Medicine | DX: I25.10 Atherosclerotic heart disease of native coronary artery without angina pectoris (principal); I35.0 Nonrheumatic aortic (valve) stenosis; I05.9 Rheumatic mitral valve disease, unspecified; I10 Essential (primary) hypertension | CPT/HCPCS: 99212 ==

== ENCOUNTER 2021-11-09 13:11 | Emergency (ER) | payer MEDICARE, SELFPAY ==
--- NOTE | ~2021-11-09 | CT_ITS ---
EXAMINATION: CT HEAD WITHOUT CONTRAST CLINICAL INFORMATION: New onset seizure. COMPARISON: 04/30/2021 TECHNIQUE: Contiguous axial imaging was performed from the skull base to vertex without intravenous administration of contrast. Coronal and sagittal reformatted images were obtained. This CT examination was performed using dose optimization techniques as appropriate, variously including the following: *Automated exposure control *Adjustment of mA and/or kV according to patient size (this includes techniques or standardized protocols for targeted exams where dose is matched to indication/reason for exam; i.e. extremities or head) *Use of iterative reconstruction technique DLP: 731 mGy-cm FINDINGS: There is no evidence of acute intracranial hemorrhage or territorial infarction. No abnormal mass effect or midline shift is seen. Martin to white matter differentiation is well preserved. Minimal periventricular microvascular changes are seen. No extra-axial fluid collections are identified. The ventricles are normal in size. There is no abnormal attenuation within the brain parenchyma. The osseous structures and soft tissues are normal. The mastoid air cells and visualized portions of the paranasal sinuses are well aerated. CT/CT head/brain wo con IMPRESSION: No acute intracranial pathology.
[2021-11-09 13:23] VITALS: BP 126/62; PULSE 56; RESP 16; TEMP 36.7; O2SAT 99; BMI 40.8
--- NOTE | 2021-11-09 13:25 | ED.SEIZURE ---
HPI - Seizure General Chief Complaint: General Medical Stated Complaint: seizure, Altered mental status Time Seen by Provider: 11/09/21 13:25 Source: patient and family Mode of arrival: ambulatory Limitations: no limitations History of Present Illness HPI Narrative: Patient is 66 years old with history of significant cardiac disease with hypertension in last 3 weeks patient had 2 episodes of seizures. In the 1st episode according to her daughter patient said that she is not feeling good and suddenly she passed out and having jerking movements but she was talking during the episode about her mother and other stuff. 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 Patient has a vague memory about the whole event. At this time patient is feeling better no confusion no tongue bite no headache no history of anxiety. Patient does have history of depression no recent stressful event at home Related Data Home Medications Medication Instructions Recorded Confirmed aspirin 81 mg tablet,delayed 81 mg PO DAILY 04/30/21 11/09/21 release atorvastatin 80 mg tablet 80 mg PO BEDTIME 04/30/21 11/09/21 gabapentin 100 mg capsule 100 mg PO TID 04/30/21 11/09/21 pantoprazole 40 mg tablet,delayed 40 mg PO DAILY 04/30/21 11/09/21 release clopidogrel 75 mg tablet 75 mg PO DAILY 07/06/21 11/09/21 fluoxetine 10 mg capsule 10 mg PO DAILY 07/06/21 11/09/21 losartan 25 mg tablet 25 mg PO BID 07/06/21 11/09/21 mirabegron 25 mg tablet,extended 25 mg PO DAILY 07/06/21 11/09/21 release 24 hr (Myrbetriq) Previous Rx's Medication Instructions Recorded amlodipine 5 mg tablet 5 mg PO DAILY #90 tabs 07/06/21 lorazepam 0.5 mg tablet (Ativan) 0.5 mg PO BID PRN anxiety #20 tabs 11/09/21 Allergies Allergy/AdvReac Type Severity Reaction Status Date / Time No Known Allergies Allergy Verified 11/09/21 12:38 Review of Systems Review of Systems: Yes all other systems are reviewed and are negative PMFSH Past Medical History Medical History Atherosclerotic cardiovascular disease Essential hypertension Surgical History S/P CABG x 3 (~02/04/21) Family History Family History Father No problems noted. Mother No problems noted. Brother S/P CABG (coronary artery bypass graft) Social History Social History Alcohol intake: never Patient Tobacco Use Status: Never used Tobacco Use of substances other than those prescribed or required for medical reasons: No Advance Directives: No Advance Directives Information Provided: No Physical Exam Vital Signs: Vital Signs: Last Vital Signs Temp 98.0 F 11/09/21 13:23 Pulse 60 11/09/21 14:00 Resp 16 11/09/21 14:00 BP 128/64 11/09/21 14:00 Pulse Ox 99 11/09/21 14:00 O2 Del Method 11/09/21 14:00 BMI result Body Mass Index 40.8 Appearance: Alert. Oriented X3. No acute distress. Eyes: PERRLA, No Nystagmus ENT: Pharynx normal. Oral Mucosa moist Neck: Normal inspection. Neck supple. CVS: Normal heart rate and rhythm. Pulses normal. Respiratory: No respiratory distress. Equal air entry bilateral, no wheezing/rales/rhonchi Abdomen: Soft and nontender. Bowel sounds are present, no mass palpable, no CVA tenderness Skin: Skin warm and dry. Normal skin color. Normal skin turgor. Extremities: No lower extremity edema. No calf tenderness Neuro: Oriented X 3. No motor deficit. No sensory deficit.No cerebellar signs , cranial nerves II-XII intact MDM - Seizure MDM Narrative Medical decision making narrative: Patient had atypical seizures questionable psychotic induced pseudoseizures versus complex partial seizure. Basic workup including CT scan of the head is negative Lab Data Attestation: I reviewed the patient's lab results. Result diagrams: 11/09/21 14:10 11/09/21 14:10 Labs: Lab Results 11/09/21 11/09/21 Range/Units 14:10 14:10 WBC 6.3 (4.8-10.8) X10*3/uL RBC 4.44 (4.20-5.50) X10*6/uL Hgb 13.9 (12.0-16.0) g/dl Hct 41.9 (37.0-47.0) % MCV 94.4 (80.0-98.0) fL MCH 31.3 (27.0-33.0) pg MCHC 33.2 (31.0-35.0) g/dl RDW 13.8 (11.0-16.0) % Plt Count 268 (160-400) X10*3/uL MPV 9.5 (9.4-12.3) fL Immature Gran % (Auto) 0.3 (0.0-0.4) % Neut % (Auto) 51.6 (45-73) % Lymph % (Auto) 36.7 (20-40) % [place] % (Auto) 9.5 (2-11) % Eos % (Auto) 1.4 (0-4) % Baso % (Auto) 0.5 (0-2) % Lymph # (Auto) 2.3 (1.2-4.9) X10*3/uL [place] # (Auto) 0.6 (0.1-1.2) X10*3/uL Eos # (Auto) 0.1 (0.0-0.4) X10*3/uL Baso # (Auto) 0.0 (0.0-0.2) X10*3/uL Abs Immat Gran (auto) 0.02 (0.00-0.03) X10*3/uL Absolute Neuts (auto) 3.2 (2.0-8.3) x10*3/uL Absolute Nucleated RBC 0.000 (0.0-0.012) X10*3/uL Nucleated RBC % (auto) 0.0 (0.0-0.2) /100WBC Sodium 143 (135-145) mmol/L Potassium 3.7 (3.3-5.1) mmol/L Chloride 108 (96-108) mmol/L Carbon Dioxide 31 H (22-29) mmol/L Anion Gap 8 L (12-20) BUN 16 D (9-16) mg/dL Creatinine 0.81 (0.5-1.4) mg/dL Estim Creat Clear Calc 71.1 Estimated GFR > 60 Random Glucose 82 (60-115) mg/dL Calcium 9.3 (8.4-10.2) mg/dL Total Bilirubin 1.3 H (0.0-1.0) mg/dL AST 23 (5-31) U/L ALT 16 (0-31) U/L Alkaline Phosphatase 103 (39-117) U/L Total Protein 7.4 (6.5-8.0) g/dL Albumin 4.1 (3.5-5.0) g/dL Discharge Plan Discharge Clinical Impression: Pseudoseizures, Seizure disorder, complex partial Patient Disposition: Home, Self-Care Instructions: Nonepileptic Seizures (ED), New-Onset Seizure in Adults (ED) Additional Instructions: Care and cautions as advised Take medication for sleep and relaxation Follow-up with neurologist Prescriptions: New lorazepam [Ativan] 0.5 mg tablet 0.5 mg PO BID PRN (Reason: anxiety) Qty: 20 0RF No Action atorvastatin 80 mg Tablet 80 mg PO BEDTIME aspirin 81 mg Tablet,Delayed Release (Dr/Ec) 81 mg PO DAILY pantoprazole 40 mg Tablet,Delayed Release (Dr/Ec) 40 mg PO DAILY gabapentin 100 mg Capsule 100 mg PO TID clopidogrel 75 mg tablet 75 mg PO DAILY losartan 25 mg tablet 25 mg PO BID fluoxetine 10 mg capsule 10 mg PO DAILY Myrbetriq 25 mg tablet extended release 24 hr 25 mg PO DAILY amlodipine 5 mg tablet 5 mg PO DAILY Qty: 90 3RF Referrals: Shonda Phan MD [Physician] - 1 week
[2021-11-09 14:00] VITALS: BP 128/64; PULSE 60; RESP 16; O2SAT 99
[2021-11-09 14:13] LABS: MANUAL DIFF FLAG NO
[2021-11-09 14:16] LABS: Basophils Percent Auto 0.5 % (0-2); Eosinophils Absolute Auto 0.1 X10*3/uL (0.0-0.4); Eosinophils Percent Auto 1.4 % (0-4); Hematocrit 41.9 % (37.0-47.0); Hemoglobin 13.9 g/dl (12.0-16.0); Imm Gran Abs Auto 0.02 X10*3/uL (0.00-0.03); Imm Gran Pct Auto 0.3 % (0.0-0.4); Lymphocytes Absolute Auto 2.3 X10*3/uL (1.2-4.9); Lymphocytes Percent Auto 36.7 % (20-40); Mean Corpuscular HGB Conc 33.2 g/dl (31.0-35.0); Mean Corpuscular Hemoglobin 31.3 pg (27.0-33.0); Mean Corpuscular Volume 94.4 fL (80.0-98.0); Mean Platelet Volume 9.5 fL (9.4-12.3); Monocytes Absolute Auto 0.6 X10*3/uL (0.1-1.2); Monocytes Percent Auto 9.5 % (2-11); Neutrophils Absolute Auto 3.2 x10*3/uL (2.0-8.3); Neutrophils Percent Auto 51.6 % (45-73); Platelet Count 268 X10*3/uL (160-400); Red Blood Count 4.44 X10*6/uL (4.20-5.50); Red Cell Distribution Width 13.8 % (11.0-16.0); White Blood Count 6.3 X10*3/uL (4.8-10.8)
[2021-11-09 14:38] LABS: Alanine Aminotransferase 16 U/L (0-31); Albumin Level 4.1 g/dL (3.5-5.0); Alkaline Phosphatase 103 U/L (39-117); Anion Gap 8 (12-20); Aspartate Amino Transferase 23 U/L (5-31); Bilirubin Total 1.3 mg/dL (0.0-1.0); Blood Urea Nitrogen 16 mg/dL (9-16); Calcium 9.3 mg/dL (8.4-10.2); Carbon Dioxide 31 mmol/L (22-29); Chloride 108 mmol/L (96-108); Creatinine Clr Calc Pharmacy 71.1; Estimated Glomerular Filt Rate > 60; Glucose Random 82 mg/dL (60-115); Potassium 3.7 mmol/L (3.3-5.1); Sodium 143 mmol/L (135-145); Total Protein 7.4 g/dL (6.5-8.0)
== END 2021-11-09 15:53 | disposition home or self-care (01) ==
PROVIDERS: Emergency Provider Internal Medicine; PCP Family Medicine
DX: G40.209 Localization-related (focal) (partial) symptomatic epilepsy and epileptic syndromes with complex partial seizures, not intractable, without status epilepticus (principal); I10 Essential (primary) hypertension; I25.10 Atherosclerotic heart disease of native coronary artery without angina pectoris; I35.0 Nonrheumatic aortic (valve) stenosis; I05.9 Rheumatic mitral valve disease, unspecified; Z91.81 History of falling; Z79.82 Long term (current) use of aspirin; Z79.02 Long term (current) use of antithrombotics/antiplatelets; Z79.899 Other long term (current) drug therapy
CPT/HCPCS: 36415; 70450; 80053; 85025; 99212; 99284

== ENCOUNTER 2021-12-28 09:05 | Outpatient (REF) | payer MEDICARE, SELFPAY ==
--- NOTE | ~2021-12-28 | MM_ITS ---
EXAMINATION: BONE DENSITOMETRY CLINICAL INDICATION: Menopause. COMPARISON: This is the patient's baseline examination. TECHNIQUE: Using a [employer] DXA System (software version: 13.1) manufactured by [employer], dual-energy x-ray absorptiometry was performed of the lumbar spine and left hip. The images are of good technical quality. Summary results are attached. FINDINGS: AP SPINE L1-L2: Excluding L3 and L4 due to degenerative sclerosis. BMD 1.015 g/cm2, Z-score -0.7, T-score -1.2, osteopenia. LEFT FEMUR, NECK: BMD 0.875 g/cm2, Z-score -0.3, T-score -1.2, osteopenia. LEFT FEMUR, TOTAL: BMD 0.946 g/cm2, Z-score 0.1, T-score -0.5, normal. IDENTIFIED RISK FACTORS: Height loss, recurrent falls, tobacco use (current smoker), menopause. HISTORY OF FRACTURE: None listed. MEDICATIONS: None listed. MM/XR DEXA axial skeleton IMPRESSION: 1. DIAGNOSIS: Osteopenia based on the lowest T-score value of -1.2 in the femur neck and lumbar spine applying World Health Organization criteria. 2. 10-YEAR FRACTURE RISK PREDICTION, FRAX: Major osteoporotic fracture (clinical spine, forearm, hip or shoulder) 4.4%. Hip fracture 0.7%. 3. Treatment Recommendations: NOF guidelines recommend consideration for treatment in postmenopausal women and men age 50 and older presenting with the following: -A hip or vertebral (clinical or morphometric) fracture. -T-score less than or equal to -2.5 at the femoral neck or spine after appropriate evaluation to exclude secondary causes. -Low bone mass at the hip or spine and a 10-year fracture probability by FRAX of greater than or equal to 3% for hip fracture or greater than or equal to 20% for major osteoporotic fracture based on the [place] adapted WHO algorithm. 4. Other Recommendations: All treatment decisions require clinical judgment and consideration of individual patient factors, including patient preferences, comorbidities, previous drug use, risk factors not captured in the FRAX model (e.g. frailty, falls, vitamin D deficiency, increased bone turnover, interval significant decline in bone density) and possible under or overestimation of fracture risk by FRAX. Additional medical evaluation for secondary cause of low bone mineral density may be appropriate. FUTURE SCAN RECOMMENDATION: People with diagnosed cases of osteoporosis or at high risk for fracture should have regular bone mineral density tests. For patients eligible for Medicare, routine testing is allowed once every 2 years. The testing frequency can be increased to one year for patients who have rapidly progressing disease, those who are receiving or discontinuing medical therapy to restore bone mass, or have additional risk factors.
--- NOTE | ~2021-12-28 | MM_ITS ---
EXAMINATION: MM SCREENING DIGITAL BREAST TOMOSYNTHESIS, BILATERAL CLINICAL INFORMATION: Screening. Asymptomatic. Prior outside mammography from [place] currently unavailable. The lifetime risk of breast cancer based on the Tyrer-Cuzick Model is 6%. COMPARISON: None. TECHNIQUE: Digital breast tomosynthesis is performed in both the craniocaudal and mediolateral oblique views along with computer-aided detection (CAD). Synthesized 2D images are generated from the tomosynthesis. FINDINGS: There are scattered areas of fibroglandular density (ACR BI-RADS breast composition Category b). There are no significant masses, abnormal calcifications, or other abnormalities. There are incidental bilateral scattered round and vascular calcifications. The axilla and skin contours are unremarkable. MM/MM tomosynthesis screening BI IMPRESSION: No mammographic evidence of malignancy. ASSESSMENT: BI-RADS 1: Negative RECOMMENDATION: Routine annual mammography screening. This patient's information was entered into a reminder system with a target due date for their next mammogram.
== END 2021-12-28 09:06 | disposition home or self-care (01) ==
LOC: HO.MAMMO 09:05
PROVIDERS: PCP Family Medicine; Visit Provider Family Medicine
DX: Z12.31 Encounter for screening mammogram for malignant neoplasm of breast (principal); Z13.820 Encounter for screening for osteoporosis; Z78.0 Asymptomatic menopausal state
CPT/HCPCS: 77063; 77067; 77080

== ENCOUNTER → 2022-05-10 12:42 | Outpatient (BNVA) | payer OTHER, SELFPAY | PROVIDERS: PCP Family Medicine; Referring Provider Family Medicine; Visit Provider Internal Medicine | DX: I25.10 Atherosclerotic heart disease of native coronary artery without angina pectoris (principal); I10 Essential (primary) hypertension; I35.0 Nonrheumatic aortic (valve) stenosis; I05.9 Rheumatic mitral valve disease, unspecified | CPT/HCPCS: 93005; 99212 ==

== ENCOUNTER → 2022-05-24 10:32 | Outpatient (BNVA) | payer OTHER, SELFPAY | PROVIDERS: PCP Family Medicine; Visit Provider Urology | DX: N39.0 Urinary tract infection, site not specified (principal) | CPT/HCPCS: 51798; 99202 ==